=== PATIENT | male | born 1960 | race Caucasian/White ===

== ENCOUNTER → 2020-09-17 10:31 | Outpatient (CLI) | payer OTHER, SELFPAY ==
[2020-09-18 12:34] LABS: Covid-19 Nasal PCR Sendout Lex Not Detected
== END ==
PROVIDERS: PCP Family Medicine; Visit Provider Family Medicine
DX: Z03.818 Encounter for observation for suspected exposure to other biological agents ruled out (principal)
CPT/HCPCS: U0004

== ENCOUNTER 2024-04-04 14:38 | Outpatient (CLI) | payer BC, SELFPAY ==
[2024-04-04 14:58] LABS: Basophils # 0.1 K/mm3 (0-0.2); Basophils % 0.6 % (0.1-2.0); Eosinophils # 0.3 K/mm3 (0.0-0.4); Eosinophils % 2.6 % (0.1-12.0); Hematocrit 39.8 % (42.0-52.0); Hemoglobin 13.1 g/dL (14.1-18.0); Lymphocytes % 15.2 % (10-50); Mean Corpuscular HGB Conc 32.9 g/dL (31.8-35.4); Mean Corpuscular Volume 94.2 fl (80-94); Mean Platelet Volume 8.8 fl (7.4-10.4); Monocytes # 0.9 K/mm3 (0.1-1.0); Monocytes % 7.2 % (1.7-9.3); Neutrophils # 9.6 K/mm3 (1.8-7.8); Neutrophils % 74.3 % (37.0-80.0); Platelet Count 263 K/mm3 (142-424); Red Blood Count 4.22 M/mm3 (4.60-6.20); Red Cell Distribution Width 15.2 % (11.5-17.5); White Blood Count 12.9 K/mm3 (4.8-10.8)
[2024-04-04 15:31] LABS: Chloride 98 mmol/L (98-107)
[2024-04-04 15:32] LABS: Potassium 4.5 mmoL/L (3.5-5.1); Sodium 135 mmol/L (136-145)
[2024-04-04 15:34] LABS: Alanine Aminotransferase 41 U/L (12-78); Alkaline Phosphatase 70 U/L (38-126); Anion Gap 15.5 mEq/L (5-15); Aspartate Amino Transferase 38 U/L (17-59); Bilirubin,Indirect 0.6 mg/dL (0.0-0.9); Bilirubin,Total 0.6 mg/dl (0.2-1.3); Bilirubin,Unconjugated 0.5 mg/dL (0.0-1.1); Blood Urea Nitrogen 37 mg/dl (9-20); Carbon Dioxide 26 mmol/L (22.0-30.0); Cholesterol 114 mg/dl (140-200); Estimated Glomerular Filt Rate 51 ml/min (>60); GFR (African American) 62 ML/MIN (>60); Triglycerides 116 mg/dl (30-150); VLDL Cholesterol 23 mg/dL (0-40)
[2024-04-04 15:35] LABS: Albumin Level 4.5 g/dl (3.5-5.0); Calcium 9.7 mg/dl (8.4-10.2); Chol/HDL Ratio 3.7 (1-3.5); Glucose 96 mg/dl (74-100); HDL Cholesterol 31 mg/dl (40-60); Iron 78 ug/dL (49-181); Magnesium 1.9 mg/dl (1.6-2.3); Total Protein,Serum 7.4 g/dl (6.3-8.2)
[2024-04-04 15:49] LABS: Total Iron Binding Capacity 324 ug/dL (261-462)
[2024-04-04 15:56] LABS: Direct LDL Cholesterol 68.86 mg/dL (100-129)
[2024-04-04 16:15] LABS: Ferritin 201 ng/ml (17.9-464)
[2024-04-04 20:39] LABS: Free T4 (Free Thyroxine) 1.23 ng/dl (0.78-2.19)
== END 2024-04-04 23:59 | disposition home or self-care (01) ==
LOC: LAB 14:40
PROVIDERS: PCP Family Medicine; Visit Provider Internal Medicine
DX: R06.00 Dyspnea, unspecified (principal); R60.0 Localized edema; R94.31 Abnormal electrocardiogram [ECG] [EKG]
CPT/HCPCS: 36415; 80048; 80061; 80076; 82728; 83540; 83550; 83735; 84439; 84443; 85025

== ENCOUNTER 2024-04-09 09:15 | Outpatient (CLI) | payer BC, SELFPAY ==
--- NOTE | 2024-04-09 09:15 | CA_ITS ---
APPROVED REPORT EXAM: Comprehensive 2D, Doppler, and color-flow Echocardiogram Paper Products Machine Operator: Fauzia Roberts RVT Ht: 5 ft 8 in Wt: 300lbs BSA: 2.43 BP: 124/70 mmHg Indications: EDEMA,SOA,CHF,OBESITY TDS-PT BODY HABITUS LIMITED WINDOWS 2D Dimensions IVSd 0.88 cm M: 0.6-1.2 LVEF (Visual) 45.80 % PWd 1.01 cm M: 0.6 - 1.2 LA Volume 64.10 mL LVDd 6.42 cm M: 4.2 - 5.9 LA Volume Index 26.38 mL/m2 (M/F) 16-34 LVDs 4.92 cm M: 2.5 - 4.0 M-Mode Dimensions LA Diam 5.25 cm (1.9-4.0) TAPSE 2.64 (<1.7) LV Diastology E Decel Time 220 (160-240 msec) E/A Ratio 0.8 Aortic Valve KASSANDRA Index 3.15 cm2/m2 AoV Peak Naif. 129.0 (50-130 cm/s) AO Peak GR. 6.60 mmHg AO Mean GR. 3.30 (<5 mmHg) AO VTI 24.6 (18-25 cm) KASSANDRA (VTI) 7.84 (2.5-4.5 cm2) Mitral Valve MV E Max Naif. 73.0 (40-130 cm/s) MV A Velocity 95.0 (40-130 cm/s) E/A Ratio 0.77 MV PHT 64.0 ms Pulmonary Valve PV Peak Velocity 98.0 (50-150 cm/s) Tricuspid Valve TR P. Velocity 192.00 cm/s RAP Estimate 10.00 mmHg RVSP 24.70 mmHg Left Ventricle The left ventricle is normal size. Left ventricular systolic function is mild to moderately decreased. There is increased LV wall thickness. There is severe hypokinesis of the septal, anterior, and anteroseptal LV calle. Grade 1 diastolic dysfunction is present. LVEF is 40%. Right Ventricle The right ventricle is normal size. The right ventricular systolic function is normal. Atria The left atrium size is normal. The right atrium size is normal. There is no Doppler evidence of interatrial shunt. Aortic Valve The aortic valve is mildly thickened. There is no aortic valvular stenosis. Mild aortic regurgitation. Mitral Valve The mitral valve is normal in structure. No evidence of mitral valve stenosis. Mild mitral regurgitation. Tricuspid Valve The tricuspid valve leaflets are thin and pliable. Trace tricuspid regurgitation. There is insufficient TR jet to estimate RVSP. Pulmonic Valve The pulmonary valve is normal in structure. Trace pulmonic regurgitation. Great Vessels The aortic root is normal in size. The ascending aorta is not well visualized. IVC is normal in size and collapses >50% with inspiration. Pericardium There is no pericardial effusion. Other Information Study Quality: Fair Conclusion Mild to moderate reduction in LV systolic function (LVEF 40%). Severe hypokinesis of the septal, anterior, and anteroseptal LV calle. Mild AI, mild MR. Electronically signed by : Elizabeth Gamez MD 04/13/2024 15:24:02
== END 2024-04-09 23:59 | disposition home or self-care (01) ==
LOC: RT 09:15
PROVIDERS: PCP Family Medicine; Visit Provider Internal Medicine
DX: R94.31 Abnormal electrocardiogram [ECG] [EKG] (principal); R60.0 Localized edema; R06.00 Dyspnea, unspecified
CPT/HCPCS: 93306

== ENCOUNTER 2024-04-18 13:53 | Outpatient (CLI) | payer BC, SELFPAY ==
[2024-04-18 15:06] LABS: Anion Gap 16.7 mEq/L (5-15); Calcium 9.8 mg/dl (8.4-10.2); Carbon Dioxide 25 mmol/L (22.0-30.0); Chloride 94 mmol/L (98-107); Estimated Glomerular Filt Rate 25 ml/min (>60); GFR (African American) 30 ML/MIN (>60); Glucose 84 mg/dl (74-100); Magnesium 2.4 mg/dl (1.6-2.3); Potassium 4.7 mmoL/L (3.5-5.1); Sodium 131 mmol/L (136-145)
[2024-04-18 15:14] LABS: Blood Urea Nitrogen 88 mg/dl (9-20)
[2024-04-18 15:33] LABS: Hemoglobin A1C 5.9 % (4.0-6.0)
== END 2024-04-18 23:59 | disposition home or self-care (01) ==
PROVIDERS: PCP Family Medicine; Visit Provider Internal Medicine
DX: I50.9 Heart failure, unspecified (principal); R94.31 Abnormal electrocardiogram [ECG] [EKG]; R60.0 Localized edema; R06.00 Dyspnea, unspecified; R06.01 Orthopnea; E11.9 Type 2 diabetes mellitus without complications; I50.20 Unspecified systolic (congestive) heart failure; Z79.899 Other long term (current) drug therapy; Z79.85 Long-term (current) use of injectable non-insulin antidiabetic drugs; Z79.84 Long term (current) use of oral hypoglycemic drugs
CPT/HCPCS: 36415; 80048; 83036; 83735

== ENCOUNTER 2024-04-23 09:27 | Outpatient (CLI) | payer BC, SELFPAY ==
[2024-04-23 10:58] LABS: Anion Gap 17.2 mEq/L (5-15); Blood Urea Nitrogen 62 mg/dl (9-20); Calcium 9.6 mg/dl (8.4-10.2); Carbon Dioxide 24 mmol/L (22.0-30.0); Chloride 98 mmol/L (98-107); Estimated Glomerular Filt Rate 41 ml/min (>60); GFR (African American) 50 ML/MIN (>60); Glucose 114 mg/dl (74-100); Potassium 5.2 mmoL/L (3.5-5.1); Sodium 134 mmol/L (136-145)
== END 2024-04-23 23:59 | disposition home or self-care (01) ==
LOC: LAB 09:29
PROVIDERS: PCP Family Medicine; Visit Provider Internal Medicine
DX: I50.20 Unspecified systolic (congestive) heart failure (principal); R06.00 Dyspnea, unspecified; R06.01 Orthopnea; R60.0 Localized edema; R94.31 Abnormal electrocardiogram [ECG] [EKG]
CPT/HCPCS: 36415; 80048

== ENCOUNTER 2024-05-03 11:10 | Outpatient (CLI) | payer BC, SELFPAY ==
[2024-05-03 12:27] LABS: Anion Gap 15.4 mEq/L (5-15); Blood Urea Nitrogen 33 mg/dl (9-20); Calcium 9.8 mg/dl (8.4-10.2); Carbon Dioxide 25 mmol/L (22.0-30.0); Chloride 100 mmol/L (98-107); Estimated Glomerular Filt Rate 47 ml/min (>60); GFR (African American) 57 ML/MIN (>60); Glucose 90 mg/dl (74-100); Potassium 4.4 mmoL/L (3.5-5.1); Sodium 136 mmol/L (136-145)
== END 2024-05-03 23:59 | disposition home or self-care (01) ==
LOC: LAB 11:11
PROVIDERS: PCP Family Medicine; Visit Provider Nurse Practitioner
DX: I50.20 Unspecified systolic (congestive) heart failure (principal); E11.9 Type 2 diabetes mellitus without complications; R94.31 Abnormal electrocardiogram [ECG] [EKG]; Z79.84 Long term (current) use of oral hypoglycemic drugs; Z79.85 Long-term (current) use of injectable non-insulin antidiabetic drugs
CPT/HCPCS: 36415; 80048

== ENCOUNTER 2024-06-05 15:12 | Outpatient (CLI) | payer BC, SELFPAY ==
[2024-06-05 15:49] LABS: Basophils # 0.1 K/mm3 (0-0.2); Basophils % 0.9 % (0.1-2.0); Eosinophils # 0.3 K/mm3 (0.0-0.4); Eosinophils % 2.4 % (0.1-12.0); Hematocrit 42.1 % (42.0-52.0); Hemoglobin 13.7 g/dL (14.1-18.0); Lymphocytes # 2.1 K/mm3 (0.7-4.5); Lymphocytes % 18.9 % (10-50); Mean Corpuscular HGB Conc 32.6 g/dL (31.8-35.4); Mean Corpuscular Hemoglobin 31.2 pg (27.0-31.2); Mean Corpuscular Volume 95.9 fl (80-94); Mean Platelet Volume 8.6 fl (7.4-10.4); Monocytes % 9.3 % (1.7-9.3); Neutrophils # 7.7 K/mm3 (1.8-7.8); Neutrophils % 68.5 % (37.0-80.0); Platelet Count 259 K/mm3 (142-424); Red Blood Count 4.39 M/mm3 (4.60-6.20); Red Cell Distribution Width 15.4 % (11.5-17.5); White Blood Count 11.2 K/mm3 (4.8-10.8)
[2024-06-05 17:32] LABS: Anion Gap 14.7 mEq/L (5-15); Blood Urea Nitrogen 33 mg/dl (9-20); Calcium 9.7 mg/dl (8.4-10.2); Carbon Dioxide 23 mmol/L (22.0-30.0); Chloride 101 mmol/L (98-107); Estimated Glomerular Filt Rate 51 ml/min (>60); GFR (African American) 62 ML/MIN (>60); Glucose 85 mg/dl (74-100); Magnesium 2.2 mg/dl (1.6-2.3); Potassium 4.7 mmoL/L (3.5-5.1); Sodium 134 mmol/L (136-145)
== END 2024-06-05 23:59 | disposition home or self-care (01) ==
LOC: LAB 15:13
PROVIDERS: PCP Family Medicine; Visit Provider Internal Medicine
DX: I50.20 Unspecified systolic (congestive) heart failure (principal); E11.9 Type 2 diabetes mellitus without complications; R06.01 Orthopnea; I50.9 Heart failure, unspecified; R94.31 Abnormal electrocardiogram [ECG] [EKG]; R60.0 Localized edema; R06.00 Dyspnea, unspecified
CPT/HCPCS: 36415; 80048; 83735; 85025

== ENCOUNTER 2024-06-14 07:57 | Outpatient (CLI) | payer BC, SELFPAY ==
--- NOTE | 2024-06-14 08:02 | CA_ITS ---
APPROVED REPORT EXAM: Limited 2D Echocardiogram Well Surveying Engineer: Laura Barrow RDCS Ht: 5 ft 8 in Wt: 286lbs BSA: 2.38 BP: 108/59 mmHg Indications: EF CHECK HRrEF M-Mode Dimensions RVDd 1.89 cm (0.9-2.6) LA Diam 3.87 cm (1.9-4.0) LVDd 6.39 cm (3.5-5.7) LVDs 4.98 cm (3.5-5.7) IVSd 1.04 cm (0.6-1.1) PWd 1.21 cm (0.6-1.1) EF (Teich) 43.60% FS 22.10% EDV (Teich) 207.80 mL ESV (Teich) 117.10 mL Other Information Study Quality: Technically Difficult Conclusion This is a limited TTE to evaluate for LVEF. Limited windows were obtained. Technically difficult study. The left ventricle is normal in size. There is increased LV wall thickness. There is global hypokinesis present. There is severe hypokinesis of the septal, anterior, and anteroseptal LV calle. LVEF is approximately 40%. Note, that the LVEF may be inaccurate in the setting of technically difficult study, but grossly appears unchanged from prior study. Future evaluations of LVEF are suggested with administration of ultrasound enhancing agent to better delineate the LV endocardial borders. Electronically signed by : Elizabeth Gamez MD 06/14/2024 11:56:08
== END 2024-06-14 23:59 | disposition home or self-care (01) ==
LOC: RT 07:58
PROVIDERS: PCP Family Medicine; Visit Provider Internal Medicine
DX: R94.31 Abnormal electrocardiogram [ECG] [EKG] (principal); I50.20 Unspecified systolic (congestive) heart failure; R06.01 Orthopnea; R60.0 Localized edema; R06.00 Dyspnea, unspecified; Z79.899 Other long term (current) drug therapy
CPT/HCPCS: 93308

== ENCOUNTER 2024-07-12 09:55 | Outpatient (CLI) | payer BC, SELFPAY ==
[2024-07-12 10:12] LABS: Chloride 97 mmol/L (98-107); Sodium 133 mmol/L (136-145)
[2024-07-12 10:15] LABS: Blood Urea Nitrogen 28 mg/dl (9-20); Estimated Glomerular Filt Rate 56 ml/min (>60); GFR (African American) 68 ML/MIN (>60)
[2024-07-12 10:16] LABS: Calcium 9.3 mg/dl (8.4-10.2); Carbon Dioxide 26 mmol/L (22.0-30.0); Glucose 94 mg/dl (74-100)
--- NOTE | 2024-07-12 10:27 | MR_ITS ---
APPROVED REPORT Clinical Product Manager: CLINICAL INDICATION HFrEF evaluation (LVEF 40% on TTE) TECHNIQUE Image Acquisition: Cardiac magnetic resonance (CMR) was performed on Siemens Espree MRI 1.5T scanner. Software platform sequences were performed using the Siemens [employer] MR B19 platform. A set of three-plane, low-resolution, large [id number] localizers were initially acquired. Then axial, coronal, sagittal TrueFISP, as well as axial HASTE images, were obtained. These were followed by gated TrueFISP breathold cinematic sequences obtained in the short axis with 8 mm slices and 2 mm gaps, 2-chamber (vertical long axis), 3-chamber, 4-chamber (horizontal long axis). 2D-velocity phase mapping was performed. Functional parameters were calculated by offline analysis on an independent workstation ([employer], [employer]). Contrast: Gadolinium contrast was not administered in the study. FINDINGS MORPHOLOGY AND FUNCTION Left ventricle: The left ventricle is normal in size. The indexed left ventricular end-diastolic volume (LVEDVi) is 76 ml/m2 (reference range 57-105 ml/m2 in males, 56-96 ml/m2 in females). There is mild reduction in rmal left ventricular systolic function. There is normal left ventricular wall thickness. There is mild global hypokinesis present. The septum appears asynchronous. There is moderate hypokinesis of the septal and inferior septal LV calle. The LVEF is calculated at 42.1% (reference range 57-77%). Right ventricle: The right ventricle is normal in size. The indexed right ventricular end-diastolic volume (RVEDVi) is 45 ml/m2 (reference range 61-121 ml/m2 in males, 48-112 ml/m2 in females). There is mild reduction in right ventricular systolic function. RVEF is calculated at 45.6% (reference range 52-72% in males, 51-71% in females). Atria: The left atrium is normal in size. The maximum indexed left atrial volume is 27 ml/m2 (reference range 26-52 ml/m2 in males, 27-53 ml/m2 in females). The right atrium is normal in size. The maximum indexed right atrial volume is 18 ml/m2 (reference range 18-90 ml/m2). The interatrial septum appears aneurysmal. Aorta: The diameter of the aortic annulus is normal, measuring 28 mm (coronal view reference range 21-30 mm in males, 19-27 mm in females). The diameter of the aortic sinus is normal, measuring 39 mm (coronal view reference range 25-42 mm in males, 24-36 mm in females). The diameter of the sinotubular junction is normal, measuring 30 mm (coronal view reference range 18-32 mm in males, 18-28 mm in females). The diameters of the ascending and descending thoracic aorta are normal. Main pulmonary artery: The main pulmonary artery diameter is normal. Pericardium: The pericardial thickness is normal. The pericardial thickness measures 2.8 mm (normal < 4.0 mm). There is no pericardial effusion. VALVES The valvular morphologies in the visualized sequences appear normal. There is no significant valvular stenosis or regurgitation of the mitral, aortic, tricuspid, or pulmonic valve noted visually. Systolic anterior motion of the mitral valve is not visualized. Ratio of pulmonary to systemic flow, Qp:Qs ratio could not be calculated due to technical error during image acquisition. TISSUE CHARACTERIZATION Resting Perfusion: Cannot be analyzed due to no gadolinium administration in the study. Myocardial Fibrosis and/or edema: Cannot be analyzed due to no gadolinium administration in the study. OTHER A well-circumscribed hyperintense hepatic mass is present, measuring approximately 2.0 cm in diameter. This most likely represents cyst vs. benign hamartoma, but alternative etiologies cannot be entirely ruled out. Correlation with new or recent RUQ ultrasound is recommended. IMPRESSION Technically difficult study due to difficult breath-holding at the time of image acquisition. Normal LV size with mild reduction in LV systolic function. LVEDVi= 76 ml/m2 and LVEF= 42.1%. Asynchronous septum. Moderate hypokinesis of the septal and anteroseptal LV calle. Normal RV size with mild reduction in RV systolic function. RVEDVi= 45 ml/m2 and RVEF= 45.6%. No atrial enlargement. The interatrial septum appears aneurysmal. No data on perfusion analysis or LGE in the setting of no contrast administration in the study. Incidental finding of a well-circumscribed hyperintense hepatic mass is present, measuring approximately 2.0 cm in diameter. This most likely represents cyst vs.benign hamartoma, but alternative etiologies cannot be entirely ruled out. Correlation with new or recent RUQ ultrasound is recommended. Overall, this CMR demonstrates mild reduction in biventricular systolic function. No evidence of marked hypertrophy to suggest infiltrative cardiomyopathy. Ischemic cardiomyopathy cannot be entirely ruled out in the setting of no contrast images. COMPARISON None CRITICAL RESULT None COMMUNICATION The above findings were communicated with the patient at the time of his routine outpatient clinic visit. The findings of this cardiac MR were reviewed, reported, and signed by Jason Gamez MD (Practice Physician). Conclusion Electronically signed by : Elizabeth Gamez MD 07/16/2024 00:59:16
== END 2024-07-12 23:59 | disposition home or self-care (01) ==
LOC: RAD 09:55
PROVIDERS: PCP Family Medicine; Visit Provider Internal Medicine
DX: I50.9 Heart failure, unspecified (principal)
CPT/HCPCS: 36415; 75557; 80048

== ENCOUNTER 2024-07-16 12:33 | Outpatient (CLI) | payer BC, SELFPAY ==
[2024-07-16 13:14] LABS: Blood Urea Nitrogen 20 mg/dl (9-20); Estimated Glomerular Filt Rate 61 ml/min (>60); GFR (African American) 74 ML/MIN (>60)
== END 2024-07-16 23:59 | disposition home or self-care (01) ==
LOC: LAB 12:34
PROVIDERS: PCP Family Medicine; Visit Provider Internal Medicine
DX: I50.20 Unspecified systolic (congestive) heart failure (principal); I50.9 Heart failure, unspecified
CPT/HCPCS: 36415; 82565; 84520

== ENCOUNTER 2025-01-14 13:42 | Outpatient (CLI) | payer BC, SELFPAY ==
[2025-01-14 14:18] LABS: Basophils # 0.1 K/mm3 (0-0.2); Basophils % 0.8 % (0.1-2.0); Eosinophils # 0.2 K/mm3 (0.0-0.4); Eosinophils % 2.4 % (0.1-12.0); Hematocrit 40.1 % (42.0-52.0); Hemoglobin 12.8 g/dL (14.1-18.0); Mean Corpuscular HGB Conc 31.9 g/dL (31.8-35.4); Mean Corpuscular Hemoglobin 30.3 pg (27.0-31.2); Mean Corpuscular Volume 94.8 fl (80-94); Mean Platelet Volume 10.5 fl (7.4-10.4); Monocytes % 9.7 % (1.7-9.3); Neutrophils # 6.7 K/mm3 (1.8-7.8); Platelet Count 280 K/mm3 (142-424); Red Blood Count 4.23 M/mm3 (4.60-6.20); Red Cell Distribution Width 15.3 % (11.5-17.5); White Blood Count 10.2 K/mm3 (4.8-10.8)
[2025-01-14 15:12] LABS: Alanine Aminotransferase 30 U/L (12-78); Albumin Level 4.4 g/dl (3.5-5.0); Alkaline Phosphatase 79 U/L (38-126); Anion Gap 16.7 mEq/L (5-15); Aspartate Amino Transferase 30 U/L (17-59); Bilirubin,Direct 0.3 mg/dl (0.0-0.4); Bilirubin,Indirect 0.2 mg/dL (0.0-0.9); Bilirubin,Total 0.5 mg/dl (0.2-1.3); Bilirubin,Unconjugated 0.2 mg/dL (0.0-1.1); Blood Urea Nitrogen 21 mg/dl (9-20); Calcium 9.6 mg/dl (8.4-10.2); Carbon Dioxide 23 mmol/L (22.0-30.0); Chloride 101 mmol/L (98-107); Chol/HDL Ratio 3.8 (1-3.5); Cholesterol 129 mg/dl (140-200); Estimated Glomerular Filt Rate 56 ml/min (>60); GFR (African American) 67 ML/MIN (>60); Glucose 91 mg/dl (74-100); HDL Cholesterol 34 mg/dl (40-60); Magnesium 2.3 mg/dl (1.6-2.3); Potassium 4.7 mmoL/L (3.5-5.1); Sodium 136 mmol/L (136-145); Total Protein,Serum 7.4 g/dl (6.3-8.2); Triglycerides 177 mg/dl (30-150); VLDL Cholesterol 35 mg/dL (0-40)
[2025-01-14 15:30] LABS: Free T4 (Free Thyroxine) 0.97 ng/dl (0.78-2.19)
== END 2025-01-14 23:59 | disposition home or self-care (01) ==
LOC: LAB 13:43
PROVIDERS: PCP Family Medicine; Visit Provider Internal Medicine
DX: I50.20 Unspecified systolic (congestive) heart failure (principal); E11.9 Type 2 diabetes mellitus without complications; R06.01 Orthopnea; R94.31 Abnormal electrocardiogram [ECG] [EKG]; R60.0 Localized edema; R06.00 Dyspnea, unspecified; Z79.899 Other long term (current) drug therapy
CPT/HCPCS: 36415; 80048; 80061; 80076; 83735; 84439; 84443; 85025

== ENCOUNTER 2025-01-25 14:25 | Outpatient (CLI) | payer BC, SELFPAY ==
--- OUTSIDE RECORDS SUMMARY | 2025-01-25 14:28 | XMS_ITS | Data Portability ---
Author Organization [facility] & NALINI Swartz ADMIN Address [address] [place] [id number] Care Team Providers Care Software Tester Name Role Phone GABINO SIERRA Primary Care Provider [phone] Assessment No assessment recorded. Plan of Treatment Reminders Order Date Submit Date Provider Last Modified By Organization Details Last Modified Time Details Appointments None record ed. Lab None record ed. Referral None record ed. Procedures None record ed. Surgeries None record ed. Imaging None record ed. Medication Orders None record ed. Patient TargetsNo targets recorded. Patient Instructions Encounter Date Encounter Id Patient Instructions Last Modified By Organization Details Last Modified Time 06/07/2024 [id number] Wound care instructions were reviewed. Advised patient that may require several treatment for adequate resolution. [email or web address] Not available 06/07/2024 17:06:38 Reason for Referral None Reported. Procedures Surgical History Date Name Laterality Status Provider Name and Address Organization Details Recorded Time 06/07/20 24 Cryosurgery Warts/Skin Tags completed Sharon Tamayo MD [address] [facility], [place], [address], [facility] & [place] 06/07/2024 17:05:24 10/10/19 22 Other completed Dolores David [facility] & [place] 05/16/2024 14:48:39 10/10/18 98 ENT Surgery completed Dolores PARNELL [facility] & [place] 05/16/2024 14:53:55 Imaging Results None recorded. Procedure Notes None recorded. Medical Equipment None Reported. Allergies No known drug allergies Medications Name Sig Start Date Stop Date Status Note LastModified by Organization Details LastModified Time metformin 500 mg tablet TAKE 1 TABLET BY MOUTH TWICE DAILY FOR DIABETES active Not Available Not Available No t Available doxycycline hyclate 100 mg capsule TAKE 1 CAPSULE BY MOUTH TWICE DAILY 05/13 completed Not Available Not Available Not Available bumetanide 2 mg tablet TAKE 1 TABLET BY MOUTH IN THE MORNING AND 2 TABLETS BY MOUTH IN THE AFTERNOON active Not Available Not Available No t Available metoprolol succinate ER 50 mg tablet,exte nded release 24 hr TAKE 1 TABLET BY MOUTH DAILY active Not Available Not Available No t Available atenolol 100 mg tablet TAKE 1 TABLET BY MOUTH EVERY DAY 05/13 completed Not Available Not Available Not Available lisinopril 20 mg tablet TAKE 1 TABLET BY MOUTH DAILY active Not Available Not Available No t Available metolazone 5 mg tablet TAKE 1 TABLET BY MOUTH DAILY active Not Available Not Available No t Available spironolact one 25 mg tablet TAKE 2 TABLETS BY MOUTH DAILY active Not Available Not Available No t Available potassium chloride ER 20 mEq tablet,exte nded release(par t/cryst) TAKE 1 TABLET BY MOUTH DAILY 05/13 completed Not Available Not Available Not Available cephalexin 500 mg capsule TAKE 1 CAPSULE BY MOUTH TWICE DAILY 05/13 completed Not Available Not Available Not Available simvastatin 20 mg tablet TAKE 1 TABLET BY MOUTH EVERY DAY active Not Available Not Available No t Available clotrimazol e-betametha sone 1 %-0.05 % topical cream APPLY TOPICALLY TO RASH 1 TO 2 TIMES DAILY NEEDED 05/13 completed Not Available Not Available Not Available bumetanide 1 mg tablet TAKE 1 TABLET BY MOUTH EVERY MORNING FOR LEG SWELLING 05/13 completed Not Available Not Available Not Available metoprolol succinate ER 25 mg tablet,exte nded release 24 hr TAKE 1 TABLET BY MOUTH DAILY 05/13 completed Not Available Not Available Not Available amoxicillin 875 mg-potassiu m clavulanate 125 mg tablet TAKE 1 TABLET BY MOUTH TWICE DAILY WITH FOOD FOR 2 WEEKS FOR INFECTION 05/13 completed Not Available Not Available Not Available sildenafil (pulmonary hypertensio n) 20 mg tablet TAKE 3 TO 5 TABLETS BY MOUTH EVERY DAY NEEDED 05/13 completed Not Available Not Available Not Available Jardiance 10 mg tablet TAKE 1 TABLET BY MOUTH DAILY active Not Available Not Available No t Available Entresto 24 mg-26 mg tablet TAKE 1 TABLET BY MOUTH TWICE DAILY active Not Available Not Available No t Available Ozempic 1 mg/dose (4 mg/3 mL) subcutaneou s pen injector ADMINISTE R 1 MG UNDER THE SKIN WEEKLY FOR 4 WEEKS active Not Available Not Available No t Available aspirin 81 mg capsule Take 1 capsule every day by oral route. active Not Available Not Available No t Available Ozempic 0.25 mg or 0.5 mg (2 mg/3 mL) subcutaneou s pen injector ADMINISTE R 0.5 MG UNDER THE SKIN WEEKLY active Not Available Not Available No t Available Vitals Date Recorded Body weight Body mass index (BMI) Body height Body temperature Provider Name and Address Organization Details Last Updated DateTime 05/16/2024 265140.01 g 43.6 kg/m2 172.72 cm 98.1 [degF] Dolores David [facility] & [place] 05/16/2024 14:50:32 Social History Question Answer Notes LastModified by Organizat ion Details LastModified Time Tobacco Smoking Status Never Smoker Dolores David [facility], [facility] & [place] 05/16/2024 14:48:34 Do You Have An Advance Directive? Yes Information not available 05/16/2024 What Is Your Level Of Alcohol Consumption? Occasional Information not available 05/16/2024 Are You Blind Or Do You Have Difficulty Seeing? No Information not available 05/16/2024 What Was The Date Of Your Most Recent Tobacco Screening? 05/13/2024 Information not available 05/16/2024 Are You Passively Exposed To Smoke? No Information no t available 05/16/2024 Do You Feel Stressed (tense, Restless, Nervous, Or Anxious, Or Unable To Sleep At Night)? [id number] Information not available 05/16/2024 Do You Use Any Illicit Or Recreational Drugs? No Information not available 05/16/2024 Sex: Unknown Functional Status Question Answer Note LastModified by Organization D etails LastModified Time What is your exercise level? None Information not available 05/16/2024 Mental Status None recorded. Family History Nothing Reported. Medical History Condition Response Diabetes Y Congestive Heart Failure (CHF) Y Heart Problems Y Hyperlipidemia Y Hypertension Y High Cholesterol Y Past Encounters Encounter ID Performer Location Encounter Start Date Encounter Closed Date Diagnosis/Indication Diagnosis SNOMED-CT Code Diagnosis ICD10 Code Diagnosis Note [id number] Sharon Tamayo MD [facility] [id number], [place] [address] 05/16/2024 14:45:04 05/16/2024 15:36:05 Seborrheic keratosis 413568852 L82.1 Explained to the patient this growth is benign in nature. Should he desire it to be removed, the repair would require a skin flap given the size of the defect. I am happy to refer him to a surgeon who specialize s in this type of repair. I am also willing to use cryotherap y to help try and reduce it in size. Explained this would most likely take several attempts. He would like to go this route. Will see him back 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 [id number] Sharon Tamayo MD [facility] [address] [place] [address] 06/07/2024 16:03:01 06/07/2024 16:30:26 Actinic keratosis 099160825 L57.0 Pain in face 52689150 R5 1.9 Health Concerns Section Related Observation LastModified by Organization Detai ls LastModified Time None Recorded Concern Status LastModified by Organization Details LastModified Time None Recorded Advance Directives Directive Y: Payers Encounter Date Sequence Insurance Name Policy Number Policy Olivas Covered Member ID Olivas Member ID Guarantor Name 05/16/2024 1 BS-[place]: BRENDA [employer] [place] [employer] ([place] [id number] Pablo Lewis [id number] Pablo Lewis 06/07/2024 1 BS-[place]: JOSE [employer] [place] [id number] Pablo Lewis [id number] Pablo Lewis Notes Date Note Type Note Provider Name and Address Organization Details Recorded Time 05/16/2024 text/html 05/16/24- Patient is here for skin lesion on right buddhism. Patient states he had surgery to remove the growth in the same location at [facility] with Dr Gifford 1996. States it was not a malignant lesion. It has grown back since. He states it is more raised up than it has been. He has no draining from it. Dr Sierra is the referring provider. Sharon Tamayo MD [address], [place], [address], [facility] [place] & [place] 05/18/2024 16:28:47
--- NOTE | 2025-01-25 14:30 | CA_ITS ---
APPROVED REPORT EXAM: Comprehensive 2D, Doppler, and color-flow Echocardiogram Pastry Cook Apprentice: SHAHID Williamson, RVS Ht: 5 ft 8 in Wt: 280lbs BSA: 2.36 BP: 112/52 mmHg Rhythm: ABN EKG Indications: HFrEF, CHF, ABN EKG, SOB, DM, Edema Echo Enhancing Agent Comments: Non-Definity contrast exam due to: Multiple attempts to start an IV were utilized without success. Poor acoustics throughout with limited windows. 2D Dimensions IVSd 1.02 cm LVEF (Visual) 48.60 % PWd 1.23 cm LA Volume 62.70 mL LVDd 5.67 cm LA Volume Index 25.90 mL/m2 (M/F) 16-34 LVDs 4.15 cm Left Atrium 4.29 cm M-Mode Dimensions LA Diam 5.03 cm (1.9-4.0) EPSs 1.37 cm TAPSE 1.65 (<1.7) LV Diastology E Decel Time 270 (160-240 msec) E/A Ratio 0.70 MED A' 15.40 cm/s LAT A' 14.00 cm/s Aortic Valve KASSANDRA Index 0.79 cm2/m2 AoV Peak Naif. 178.0 (50-130 cm/s) AO Peak GR. 12.70 mmHg AO Mean GR. 6.30 (<5 mmHg) AO VTI 34.1 (18-25 cm) KASSANDRA (VTI) 1.90 (2.5-4.5 cm2) Mitral Valve MV A Velocity 99.0 (40-130 cm/s) E/A Ratio 0.70 Left Ventricle The left ventricle is normal size. The left ventricular systolic function is low normal.. There is increased LV wall thickness. There is moderate hypokinesis of the septal and anteroseptal LV calle. Transmitral Doppler flow pattern suggests impaired LV relaxation. LVEF is 50%. Right Ventricle The right ventricle is normal size. The right ventricular systolic function is normal. Atria The left atrium size is normal. The right atrium size is normal. There is no Doppler evidence of interatrial shunt. Aortic Valve The aortic valve is mildly thickened. Trace aortic regurgitation. There is no aortic valvular stenosis. Mitral Valve The mitral valve is normal in structure. No evidence of mitral valve stenosis. Trace mitral regurgitation. Tricuspid Valve Tricuspid valve is grossly normal in structure and function. Trace tricuspid regurgitation. There is insufficient TR jet to estimate RVSP. Pulmonic Valve The pulmonary valve is normal in structure. Trace pulmonic regurgitation. Great Vessels The aortic root is normal in size. IVC is normal in size and collapses >50% with inspiration. Pericardium There is no pericardial effusion. Other Information Study Quality: Technically Difficult Conclusion Technically difficult study due to poor acoustic windows. Low normal LV systolic function (LVEF 50%). Moderate hypokinesis of the septal and anteroseptal LV calle. No significant valvular stenosis or regurgitation. Compared to prior study from 06/14/2024, the LVEF is improved and is now normal. In the setting of technically difficult study, future TTE evaluations are suggested with administration of ultrasound enhancing agent to better delineate the LV endocardial borders. Electronically signed by : Elizabeth Gamez MD 01/28/2025 23:00:53
== END 2025-01-25 23:59 | disposition home or self-care (01) ==
LOC: RT 14:26
PROVIDERS: PCP Family Medicine; Visit Provider Internal Medicine
DX: I50.20 Unspecified systolic (congestive) heart failure (principal)
CPT/HCPCS: 93306

== ENCOUNTER 2025-08-06 14:32 | Outpatient (CLI) | payer BC, SELFPAY ==
--- OUTSIDE RECORDS SUMMARY | 2025-08-06 14:51 | XMS_ITS | Data Portability ---
Author Organization [facility] Address [address] [place] [address] Assessment Encounter Date Assessment Date Assessment LastModified by Organization Details LastModified Time 07/11/2017 07/11/2017 Mr. Lewis required suture repair of a left elbow laceration suffered at [facility] this morning. A urine drug screen is negative. He cannot recall his last tetanus vaccine and thinks it was likely many years ago so immunization is updated. He tolerated the procedure without complication. He returns to work with restrictions to keep the wound clean, dry and covered. He also should not use the left arm for repetitive movements. He will follow up in the [facility] clinic for any concerns and in 1 week for wound check and 2 weeks for suture removal. fabien Not available 07/11/2017 22:02:10 Plan of Treatment Reminders Order Date Submit Date Provider Last Modified By Organization Details Last Modified Time Details Appointments None recorde d. Lab drug screen, urine 017 07/11/20 17 fabien [facility], [address] [place], [address], 7 22:03:18 Referral None recorde d. Procedures None recorde d. Surgeries None recorde d. Imaging None recorde d. Medication Orders None recorde d. Patient TargetsNo targets recorded. Patient InstructionsNo instructions recorded. Reason for Referral None Reported. Problems Name Problem SNOMED Code Status Onset Date Resolution Date Notes Provider Name and Address Organization Details Recorded Time Sprain of shoulder and upper arm Active Not Available [facility] 3 03:01:18 Problem Notes None recorded. Procedures Surgical History Date Name Laterality Status Provider Name and Address Organization Details Recorded Time 7 Laceration Repair completed Daphney Muñoz MD [address] [facility], [address], [place], [address], [facility] 07/11/2017 21:51:09 2 Cardiac Surgery completed Anahy Lewis [facility] 03/30/2012 11:28:12 Imaging Results None recorded. Procedure Notes None recorded. Medical Equipment None Reported. Allergies No known drug allergies Medications Name Sig Start Date Stop Date Status Note LastModified by Organization Details LastModified Time losartan 50 mg tablet active Not Available Not Available No t Available cyclobenzapr ine 10 mg tablet Take 1 tablet 3 times a day by oral route as needed. active Not Available Not Available No t Available atorvastatin 80 mg tablet active Not Available Not Available Not Available carvedilol 25 mg tablet active Not Available Not Available Not Available carvedilol 6.25 mg tablet 2011 active Not Available Not Available Not Avai lable carvedilol 12.5 mg tablet 2011 active Not Available Not Available Not Avai lable amiodarone 200 mg tablet TAKE 1 TABLET BY MOUTH ONCE DAILY active Not Available Not Available No t Available permethrin 5 % topical cream active Not Available Not Available Not Available clopidogrel 75 mg tablet active Not Available Not Available Not Available Diovan 80 mg tablet active Not Available Not Available Not Available tramadol 50 mg tablet TAKE 1 TABLET BY MOUTH THREE TIMES DAILY NEEDED active Not Available Not Available No t Available spironolacto ne 25 mg tablet active Not Available Not Available Not Available carvedilol 3.125 mg tablet 2011 active Not Available Not Available Not Avai lable aspirin 325 mg tablet,delay ed release active Not Available Not Available N ot Available mupirocin 2 % topical ointment APPLY A SMALL AMOUNT TO THE AFFECTED AREA BY TOPICAL ROUTE 3 TIMES PER DAY active Not Available Not Available No t Available furosemide 20 mg tablet active Not Available Not Available Not Available methylpredni solone 4 mg tablets in a dose pack TAKE DIRECTED active Not Available Not Available No t Available losartan 100 mg tablet active Not Available Not Available No t Available Xarelto 20 mg tablet active Not Available Not Available No t Available Afluria [id number] (PF) 45 mcg(15 mcg x 3)/0.5 mL intramuscula r syringe inject 0.5 milliliter intramuscul kesha active Not Available Not Available No t Available Paxlovid 300 mg (150 mg x 2)-100 mg tablets in a dose pack TK 2 NIRMATRELVI R TS AND 1 RITONAVIR T TOGETHER PO BID FOR 5 DAYS BID FOR 5 DAYS active Not Available Not Available N ot Available Vitals Date Recorded Body height Body weight Body mass index (BMI) Heart rate Oxygen saturation Oxygen saturation in Arterial blood by Pulse oximetry Body temperature Systolic And Diastolic Provider Name and Address Organization Details Last Updated DateTime 2 181.61 cm 53669.2 5111 g 27.9 kg/m2 66 /min 99 % 99 % 98.2 [degF] 109/69 mm[Hg] [facility] 2 11:28:12 Date Recorded Body height Body weight Body mass index (BMI) Heart rate Oxygen saturation Oxygen saturation in Arterial blood by Pulse oximetry Body temperature Systolic And Diastolic Provider Name and Address Organization Details Last Updated DateTime 2 181.61 cm 06487.4 3585 g 28.2 kg/m2 55 /min 99 % 99 % 97.9 [degF] 116/76 mm[Hg] [facility] 2 13:52:21 Date Recorded Body height Body weight Body mass index (BMI) Heart rate Oxygen saturation Oxygen saturation in Arterial blood by Pulse oximetry Body temperature Systolic And Diastolic Provider Name and Address Organization Details Last Updated DateTime 2 181.61 cm 05394.5 83694 g 28.8 kg/m2 68 /min 97 % 97 % 98.2 [degF] 115/71 mm[Hg] [facility] 2 13:15:20 Date Recorded Body height Body weight Body mass index (BMI) Heart rate Oxygen saturation Oxygen saturation in Arterial blood by Pulse oximetry Body temperature Systolic And Diastolic Provider Name and Address Organization Details Last Updated DateTime 2 181.61 cm 44516.1 38664 g 28.4 kg/m2 59 /min 98 % 98 % 98 [degF] 125/79 mm[Hg] Anahy [facility] 2 13:49:38 Date Recorded Body height Body mass index (BMI) Body weight Heart rate Oxygen saturation Oxygen saturation in Arterial blood by Pulse oximetry Body temperature Systolic And Diastolic Provider Name and Address Organization Details Last Updated DateTime 7 182.88 cm 19.5 kg/m2 41209 g 82 /min 93 % 93 % 98.2 [degF] 119/80 mm[Hg] [facility] 7 09:22:05 Social History Question Answer Notes LastModified by Organizat ion Details LastModified Time Tobacco Smoking Status Never Smoker Not Available [facility] 08/05/2020 03:11:17 Do You Have An Advance Directive? No [id number] Information not available 08/05/2020 Animal Exposure? Yes Informat ion not available 03/30/2012 Auto Related Injury? No Information not available 03/30/2012 Is Blood Transfusion Acceptable In An Emergency? Yes [id number] Information not available 08/05/2020 What Is Your Level Of Caffeine Consumption? Occasional [id number] Information not available 08/05/2020 How Much Tobacco Do You Chew? None [id number] Information not available 08/05/2020 Diabetes Yes Information no t available 03/30/2012 What Type Of Diet Are You Following? REGULAR [id number] Information not available 08/05/2020 Education 12 Information no t available 03/30/2012 Family History Of Heart Disease? Yes Information not available 03/30/2012 Which Of Your Hands Is Dominant? Right [id number] Information not available 08/05/2020 High Blood Pressure Yes Information not available 03/30/2012 High Cholesterol Yes Informat ion not available 03/30/2012 Live Alone Or With Others? With Others Information not available 03/30/2012 Marital Status Informatio n not available 03/30/2012 How Many Children Do You Have? 1 [id number] Information not available 08/05/2020 Do You Use Your Seat Belt Or Car Seat Routinely? Yes [id number] Information not available 08/05/2020 Seat Belts Used Routinely Yes Information not available 03/30/2012 Smoke Alarm In Home Yes Information not available 03/30/2012 General Stress Level Medium [facility] Information not available 03/30/2012 Do You Use Sunscreen Routinely? Yes [id number] Information not available 08/05/2020 Work Related Injury? Yes Information not available 03/30/2012 Sex: Unknown Functional Status Question Answer Note LastModified by Organizat ion Details LastModified Time What is your level of alcohol consumption? None [id number] Information not available 08/05/2020 Are you currently employed? Yes [id number] Information not available 08/05/2020 Are you able to care for yourself independently? Yes [id number] Information not available 08/05/2020 What is your occupation? [employer]ORY Information not available 03/30/2012 What is your exercise level? Occasional [id number] Information not available 08/05/2020 Mental Status None recorded. Family History Relationship Description Onset Age of this Age Resolved Age Notes LastModified by Organization Details LastModified Time Father Myocardial infarction 61 previo usly record ed as Heart Attack (DE) [email or web address] [id number] Not available 07/08/2013 03:00:59 Maternal Grandfather Myocardial infarction 72 previo usly record ed as Heart Attack ([place]) [email or web address] [id number] Not available 07/08/2013 03:00:59 Maternal Grandfather Cerebrovascu lar accident previo usly record ed as Stroke [email or web address] [id number] Not available 07/08/2013 03:00:59 Paternal Grandfather Myocardial infarction 84 previo usly record ed as Heart Attack ([place]) [email or web address] [id number] Not available 07/08/2013 03:00:59 Medical History Condition Response Coronary Artery Disease N Gout N Kidney Stones N Blood Diseases N Hyperthyroidism Y Hypothyroidism N Depression N COPD N Developmental or Behavioral Disorders N Eczema, Hives or other skin conditions N Anxiety Disorder N Muscle, Joint, or Bone Problems N Vision or Eye Problems N Arthritis N Serious Illness or Injuries N Congenital Anomalies N Cancer N Stroke N Bladder or Kidney Problems N Hospital Admission other than N High Cholesterol Y Liver Disease N Fibromyalgia N Kidney Disease N Heart Problems Y Ear or Hearing Problems N ADD or ADHD N Thyroid Problems N Skin Problems N Anemia N Constipation N Diabetes N Bedwetting N Seizures/Epilepsy N Tuberculosis N Diverticulitis N Asthma N Allergies N GERD/Reflux N Heart Disease N Pulmonary Embolism N Hypertension N Osteoporosis N Chicken Pox N Immunizations Vaccine Type Date Status Note Provider Nam e and Address Organization Details Recorded Time Tdap 07/11/2017 completed Not Available [facility] 10/27/2019 02:12:10 Past Encounters Encounter ID Performer Location Encounter Start Date Encounter Closed Date Diagnosis/Indication Diagnosis SNOMED-CT Code Diagnosis ICD10 Code Diagnosis IMO Codes Diagnosis Note [id number] Riley Luz MD [facility] [place] [address] 7 03/30/2012 11:05:53 03/30/2012 12:37:01 [id number] Riley Luz MD [facility] [address] [place] [address] 7 04/14/2012 13:50:14 04/14/2012 16:11:46 [id number] Riley Luz MD [facility] [place] [id number] 7 04/28/2012 13:10:23 04/28/2012 14:15:24 [id number] Riley Luz MD [place] [address] 7 05/26/2012 13:47:01 05/26/2012 16:45:21 [id number] Daphney Muñoz MD [facility] [address] [address] 07/11/2017 09:07:28 07/13/2017 11:26:18 Active or passive immunization 742386318 Z23 Laceration of elbow 2833 64822 S51.012A Worker in work-related accident 45504871 Z57.9 Health Concerns Section Related Observation LastModified by Organization Detai ls LastModified Time None Recorded Concern Status LastModified by Organization Details LastModified Time None Recorded Advance Directives Directive N: Payers Insurance Date Sequence Insurance Name Policy Number Policy Olivas Covered Member ID Olivas Member ID Guarantor Name 07/13/2017 [employer] [id number] blayne Lewis Notes Date Note Type Note Provider Name and Address Organization Details Recorded Time 04/03/2012 text/Dario Fournier 2 Mr. Lewis has a history of onset of discomfort in his left shoulder for two weeks. He is an employee of [employer]. 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 He has also recently had cardiac disease requiring two stents and is now on Plavix and aspirin, so this precludes the use of the NSAIDs. 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 OBJECTIVE: Range of motion of the shoulder is essentially normal. There is no deformity. There is no swelling and not a particular area except the left subdeltoid bursa is somewhat tender. ASSESSMENT: Acute left shoulder strain. PLAN: Return to employment but with limitations avoiding lifting on the left shoulder greater than 10 pounds and avoiding repetitive lifting with left shoulder. He has worked in other capacities at the [employer] and probably would do better in one of those other capacities at least for a time to allow the shoulder time to recover. If the employer has any issues about this, they can get me called and try to accommodate him to help him to be able to keep his work. Riley Luz M.D. JLF/pts Not Available [facility] 05/04/2013 04:34:40 04/18/2012 text/juan luis Dario Lewisald 04/14 Mr. Lewis comes in for followup to a lifting injury to his left shoulder. He continues to have limited motion of the left shoulder and a little bit strength in the left shoulder. He is especially on elevation. There is a 50% reduction in the strength as compared to the right, and a 20% reduction on the downward or flexion motion in his shoulder. The ability to raise the arm over the head is also limited. This has really not improved. 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 His shoulder really is not stronger despite the strengthening exercises. ASSESSMENT: Acute left shoulder strain, unresolved. PLAN: Start physical therapy with gradually increasing strengthening and activity. If this is not successful, then an orthopedic consultation with shoulder surgeon, Dr. Crabtree, would be scheduled. Riley Luz M.D. ISABELLEF/pts Not Available [facility] 05/04/2013 04:34:50 05/01/2012 text/juan luis Lewis Dario 2 Mr. Dario Lewis, a [facility] employee who suffered a significant left shoulder strain that was unresolved when we saw him two weeks ago. Subsequently, he has seen physical therapy. He has improved, and it appears now that he would not need the shoulder surgery. He has gained a little amount of strength, but he still has some weakness on specially motions or lifting above the shoulder. Anything overhead of course will be a challenge. He has made arrangements with his workplace. He is going to be on a different procedure job so that he will not have to do one-arm lift. He is still going to be limited to about 15 motions per hour with the left arm and gaining until he gains strength as well as lifting and carrying restricted to 25-pound lifting and 25-pound carrying about 15 an hour as well as the repetitive use of the left arm limited to about 20. He is continuing with the physical therapy and has made an excellent improvement, not yet ready to return to full capacity. I expect that he will be over the next little while without surgery. Riley Luz M.D. JLF/pts Not Available [facility] 05/04/2013 04:34:54 05/29/2012 text/Rich Fournier 05/26/12 Mr. Lewis had an injury of the right shoulder, was treated aggressively with physical therapy and worked hard on his recovery. He is now 100% recovered with no pain, no limitation of motion, and ready to return to his full-time active job at [employer]. He is discharged this date and encouraged to follow the guidelines and follow the instructions of the therapist to maintain his strength and avoid further injury. Riley Luz M.D. ISABELLEF/pts Not Available [facility] 05/04/2013 04:35:07 03/30/2012 text/html ROS as noted in the HPI Not Available [facility] 04/03/2012 12:20:06 04/14/2012 text/html ROS as noted in the HPI Not Available [facility] 04/18/2012 11:25:33 04/28/2012 text/html ROS as noted in the HPI Not Available [facility] 05/01/2012 15:09:23 05/26/2012 text/html ROS as noted in the HPI [facility] 05/29/2012 07:59:31 07/11/2017 text/html Mr Lewis suffered a laceration on the left elbow this morning at work and presented in the clinic shortly thereafter. He does take plavix generic and aspirin. Daphney Muñoz MD [address] [facility], [address], [place], [address], [facility] 07/11/2017 22:03:43
--- OUTSIDE RECORDS SUMMARY | 2025-08-06 14:51 | XMS_ITS | Data Portability ---
Author Organization [facility] [place] [facility] Address [address] [place] [address] Care Team Providers Care Database Developer Name Role Phone GABINO SIERRA Primary Care Provider Assessment No assessment recorded. Plan of Treatment [...] By Organization Details Last Modified Time 06/07/2024 [id number] Wound care instructions were reviewed. Advised patient that may require several treatment for adequate resolution. [email or web address] Not available 06/07/2024 17:06:38 Reason for Referral None Reported. Procedures Surgical History Date Name Laterality Status Provider Name and Address Organization Details Recorded Time 06/07/20 24 Cryosurgery Warts/Skin Tags completed Sharon Tamayo MD [address] [facility], [place], [address], [facility] [place] 06/07/2024 17:05:24 10/10/19 22 Other completed Dolores David [facility] [place] 05/16/2024 14:48:39 10/10/18 98 ENT Surgery completed Dolores David [facility] [place] 05/16/2024 14:53:55 Imaging Results None recorded. Procedure [...] Address Organization Details Last Updated DateTime 05/16/2024 475089.01 g 43.6 kg/m2 172.72 cm 98.1 [degF] Dolores Smithence [facility] [place] 05/16/2024 14:50:32 Social History Question Answer Notes LastModified by [employer] Details LastModified Time Tobacco Smoking Status Never Smoker Dolores [facility] [place] 05/16/2024 14:48:34 Do You Have An Advance Directive? Yes Information not available 05/16/2024 Are You Blind Or Do You Have Difficulty Seeing? No Information not available 05/16/2024 What Was The Date Of Your Most Recent Tobacco Screening? 05/13/2024 Information not available 05/16/2024 Are You Passively Exposed To Smoke? No Information not available 05/16/2024 Sex: Unknown Functional Status Question Answer Note LastModified by [employer] Details LastModified Time Do you use any illicit or recreational drugs? No Information not available 05/16/2024 What is your level of alcohol consumption? Occasional Information not available 05/16/2024 What is your exercise level? None Information not available 05/16/2024 Mental Status Question Answer Note LastModified by Organization D etails LastModified Time Do you feel stressed (tense, restless, nervous, or anxious, or unable to sleep at night)? [id number] Information not available 05/16/2024 Family History Nothing Reported. Medical History Condition Response Diabetes Y Heart Problems Y Congestive Heart Failure (CHF) Y Hyperlipidemia Y Hypertension Y High Cholesterol Y Past Encounters Encounter ID Performer Location Encounter Start Date Encounter Closed Date Diagnosis/Indication Diagnosis SNOMED-CT Code Diagnosis ICD10 Code Diagnosis IMO Codes Diagnosis Note [id number] Sharon Tamayo MD [facility] [address] [facility], [facility] [place] [address] 05/16/2024 14:45:04 05/16/2024 15:36:05 Seborrheic keratosis 087021038 L82.1 Explained to the patient this growth [...] 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 [id number] Sharon Tamayo MD [facility] [address] [place] [address] 06/07/2024 16:03:01 06/07/2024 16:30:26 Actinic keratosis 444583364 L57.0 Pain in face 37093359 R5 1.9 Health Concerns Section Related Observation LastModified by Organization Detai ls LastModified Time None Recorded Concern Status LastModified by Organization Details LastModified Time None Recorded Advance Directives Directive Y: Payers Insurance Date Sequence Insurance Name Policy Number Policy Olivas Covered Member ID Olivas Member ID Guarantor Name 10/12/2023 1 [employer] Pablo Lewis [id number] Pablo Lewis 06/18/2024 1 [facility] (PPO) [id number] Pablo Lewis [id number] Pablo Lewis Notes Date Note Type Note Provider Name and Address Organization Details Recorded Time 05/16/2024 text/html 05/16/24- Patient is here for skin lesion on right hindu. Patient states he had surgery to remove the growth in the same location at [facility] with Dr Gifford 1996. States it was not a malignant lesion. It has grown back since. He states it is more raised up than it has been. He has no draining from it. Dr Sierra is the referring provider. Sharon Tamayo MD [address], [place], [address], [facility] [place] [facility] [place] 05/18/2024 16:28:47
[2025-08-06 16:10] LABS: Chloride 96 mmol/L (98-107)
[2025-08-06 16:11] LABS: Potassium 4.3 mmoL/L (3.5-5.1); Sodium 135 mmol/L (136-145)
[2025-08-06 16:13] LABS: Blood Urea Nitrogen 34 mg/dl (9-20)
[2025-08-06 16:14] LABS: Anion Gap 14.3 mEq/L (5-15); Calcium 9.0 mg/dl (8.4-10.2); Carbon Dioxide 29 mmol/L (22.0-30.0); Creatinine,Serum 1.50 mg/dl (0.66-1.25); Estimated Glomerular Filt Rate 47 ml/min (>60); GFR (African American) 57 ML/MIN (>60); Glucose 88 mg/dl (74-100)
== END 2025-08-06 23:59 | disposition home or self-care (01) ==
LOC: LAB 14:33
PROVIDERS: PCP Family Medicine; Visit Provider Internal Medicine
DX: I50.20 Unspecified systolic (congestive) heart failure (principal); E11.9 Type 2 diabetes mellitus without complications; R94.31 Abnormal electrocardiogram [ECG] [EKG]; Z79.899 Other long term (current) drug therapy
CPT/HCPCS: 36415; 80048

== ENCOUNTER 2025-08-29 07:19 | Day surgery (SDC) | payer BC, SELFPAY ==
[2025-08-29] VITALS (7 sets, daily range): BP systolic 109–127; BP diastolic 52–67; PULSE 61–72; RESP 16–20; TEMP 36.2; O2SAT 92–98; BMI 45.4
--- NOTE | 2025-08-29 07:01 | IR_ITS ---
APPROVED REPORT Patient Location: Outpatient PROCEDURES Right heart catheterization INDICATION Pulmonary hypertension, Congestive heart failure Informed consent was obtained prior to the procedure. COMPLICATIONS NONE Estimated Blood Loss: LESS THAN 10 ML TECHNIQUE One percent lidocaine was used to anesthetize the right anterior aspect of the neck. A oracle software engineer needle was used to identify the right internal jugular vein. Following this a larger cannulation needle was used to cannulate the right internal jugular vein and a wire was passed into the vein. Prior to the 7 Colombian sheath being inserted the wire was confirmed under fluoroscopic guidance to be in the inferior vena cava. A 7 Colombian sheath was introduced and a [place]-Devon catheter was floated using hemodynamic waveforms in the pulmonary artery, right ventricle , and right atrium. Saturations were obtained in the pulmonary artery and the right atrium. At the end of the procedure the patient was transferred to the postop holding area in stable condition for sheath removal. ANGIOGRAPHIC RESULTS Right atrial pressure 18 mmHg Pulmonary artery pressure 60/25 mmHg Pulmonary artery occlusion pressure 20 mmHg Right atrial saturation 78% Pulmonary artery saturation 75% Hemoglobin 13.8% Aortic saturation 93% Cardiac output 9.2 L/min IMPRESSION Moderate to severe pulmonary hypertension with elevated left-sided filling pressures PLAN 1. Increased diuresis 2. Based on complex heart failure and large doses of Bumex and metolazone patient should be considered for Cordella device to help manage complex heart failure Electronically signed by : Gurmeet Woodard MD 08/29/2025 13:03:06
[2025-08-29 07:44] LABS: Hematocrit 41.7 % (42.0-52.0); Hemoglobin 13.8 g/dL (14.1-18.0); Immature Granulocytes % 1.6 %; Mean Corpuscular HGB Conc 33.1 g/dL (31.8-35.4); Mean Corpuscular Hemoglobin 30.5 pg (27.0-31.2); Mean Corpuscular Volume 92.1 fl (80-94); Nucleated Red Blood Cells % 0 %; Platelet Count 246 K/mm3 (142-424); Red Blood Count 4.53 M/mm3 (4.60-6.20); Red Cell Distribution Width-SD 51.7 fL; White Blood Count 10.7 K/mm3 (4.8-10.8)
[2025-08-29 07:48] LABS: Chloride 99 mmol/L (98-107); Potassium 4.5 mmoL/L (3.5-5.1); Sodium 139 mmol/L (136-145)
[2025-08-29 07:51] LABS: Anion Gap 18.5 mEq/L (5-15); Blood Urea Nitrogen 28 mg/dl (9-20); Calcium 9.0 mg/dl (8.4-10.2); Carbon Dioxide 26 mmol/L (22.0-30.0); Creatinine Clearance Estimated 52 mL/min (50-200); Creatinine,Serum 1.40 mg/dl (0.66-1.25); Estimated Glomerular Filt Rate 51 ml/min (>60); GFR (African American) 62 ML/MIN (>60); Glucose 127 mg/dl (74-100)
[2025-08-29] MEDS: HEPARIN 1,000 UNITS/500ML NS (CATH LAB) 3000 UNIT IV (08:16)
[2025-08-29] MEDS: 0.9 % SODIUM CHLORIDE 500 ML 25 ML IV (08:18)
[2025-08-29] MEDS: LIDOCAINE 1% 10ML MDV 10 ML IJ (08:18)
[2025-08-29] MEDS: FENTANYL 100MCG/2ML VIAL 50 MCG IV (08:32)
[2025-08-29] MEDS: MIDAZOLAM HCL 1MG/ML 5ML VIAL 1 MG IV (08:32)
[2025-08-29 14:22] LABS: CATHL Arterial O2 SAT 75.5 % (90-100); CATHL Venous O2 SAT 78.1 % (75-80)
== END 2025-08-29 09:51 | disposition home or self-care (01) ==
PROVIDERS: PCP Family Medicine; Visit Provider Internal Medicine
PROC: 4A023N6 Measurement of Cardiac Sampling and Pressure, Right Heart, Percutaneous Approach (ICD-10-PCS; CPT 93451; principal; 2025-08-29 11:30)
DX: I27.20 Pulmonary hypertension, unspecified (principal); I50.33 Acute on chronic diastolic (congestive) heart failure; I50.20 Unspecified systolic (congestive) heart failure; R94.31 Abnormal electrocardiogram [ECG] [EKG]; E11.9 Type 2 diabetes mellitus without complications; K21.9 Gastro-esophageal reflux disease without esophagitis; Z79.84 Long term (current) use of oral hypoglycemic drugs; Z79.82 Long term (current) use of aspirin; Z79.899 Other long term (current) drug therapy
CPT/HCPCS: 80048; 82810; 85025; 93451; 99152; C1894; J1200; J1644; J2003; J3010; J7040

== ENCOUNTER 2025-09-03 14:35 | Outpatient (CLI) | payer BC, SELFPAY ==
--- OUTSIDE RECORDS SUMMARY | 2025-09-03 14:42 | XMS_ITS | Clinical Summary ---
Author Organization [facility] Address [address] [place] [address] Care Team Providers Care Imcu Nurse Name Role Phone Chente Sierra MD Primary Care Provider [phone] Allergies No known active allergies Medications simvastatin (ZOCOR) 20 MG tablet Take 1 tablet by mouth Daily. 3 Active sacubitril-valsa rtan (Entresto) 24-26 MG tabletIndication s:Chronic combined systolic and diastolic congestive heart failure Take 1 tablet by mouth 2 (Two) Times a Day. 60 tablet 11 3 Active metoprolol succinate XL (TOPROL-XL) 25 MG 24 hr tabletIndication s:Chronic combined systolic and diastolic congestive heart failure Take 1 tablet by mouth Daily. 30 tablet 3 Active aspirin 81 MG EC tablet Take 1 tablet by mouth Daily. Active bumetanide (BUMEX) 2 MG tabletIndication s:Acute on chronic combined systolic and diastolic congestive heart failure Take 1 tablet by mouth 3 (Three) Times a Day. Take one pill in the morning and two pills in the afternoon 60 tablet 11 4 Active potassium chloride (K-DUR,KLOR-CON) 20 MEQ CR tabletIndication s:Acute on chronic combined systolic and diastolic congestive heart failure Take 1 tablet by mouth 2 (Two) Times a Day. 30 tablet 11 4 Active cephalexin (Keflex) 500 MG capsuleIndicatio ns:Acute on chronic combined systolic and diastolic congestive heart failure,Cellulit is of left lower extremity Take 1 capsule by mouth 2 (Two) Times a Day. 14 capsule 4 Active doxycycline (VIBRAMYCIN) 100 MG capsuleIndicatio ns:Cellulitis of right lower extremity Take 1 capsule by mouth 2 (Two) Times a Day. 20 capsule 4 Active empagliflozin (JARDIANCE) 10 MG tablet tabletIndication s:Chronic combined systolic and diastolic congestive heart failure,Bilatera l leg edema,Type 2 diabetes mellitus with other circulatory complication, without long-term current use of insulin Take 1 tablet by mouth Daily. 14 tablet 4 Active spironolactone (ALDACTONE) 25 MG tabletIndication s:Acute on chronic combined systolic and diastolic congestive heart failure TAKE 2 TABLETS BY MOUTH DAILY 30 tablet 11 4 Active Active Problems Problem Noted Date Diagnosed Date Cellulitis of right lower extremity 01/04/2024 Assessment & Plan (01/04/2024 3:09 PM EDT): Patient reports worsening right lower extremity swelling and redness. He also has ulcerations with yellow drainage. He recently completed Keflex 3 weeks ago. He initially noticed improvement in symptoms but have worsened in the last week. - Trial of doxycycline 100 mg twice daily x 10 days. Keep follow-up visit in 1 month ARLETTE (obstructive sleep apnea) 01/04/2024 Assessment & Plan (01/04/2024 2:45 PM EDT): Patient recently completed a PSG that showed severe sleep apnea with an AHI of 42. PAP therapy was initiated. He received his machine yesterday and used it last night for the first time. - He has an appointment in 1 month for an ARLETTE compliance visit. Cellulitis of left lower extremity 12/14/2023 Assessment & Plan (12/15/2023 9:08 AM EST): Left lower extremity with areas of redness, worsening edema, appearance of early blistering with fluid leak. We will treat him for cellulitis. Collaborated with Dr. Palm and she has ordered antibiotics. Pre-operative cardiovascular examination 024 Assessment & Plan (12/15/2023 9:10 AM EST): He is here today requesting cardiac clearance for a carpal tunnel release per Dr. Jose Alejandro Palm. We discussed at this time hold on surgery. At best he appears to be an intermediate risk for any surgical procedures. We will recheck his echocardiogram. If his EF is low then there is consideration that he will be needing a defibrillator. Chronic combined systolic an d diastolic congestive heart failure 04/18/2023 Overview (04/18/2023): Added automatically from request for surgery [id number] Assessment & Plan (12/19/2023 11:42 AM EDT): Heart failure is stable. Continue current treatment regimen. Dietary sodium restriction. Encouraged daily monitoring of the patient's weight. Medication changes per orders. Heart failure will be reassessed in 2 weeks. Bradycardia, drug induced 04/07/2023 Assessment & Plan (04/07/2023 6:28 PM EDT): He had heart monitor from 03/09 to 03/23/2023, 14-day monitor shows sinus rhythm heart rate average 62 with multiple pauses and bradycardia burden. EKG today shows sinus bradycardia with a first-degree AV block heart rate 58. He denies any weakness dizziness or syncope. He does have shortness of breath and significant bilateral lower extremity edema. He is currently on atenolol 100 mg daily. Reports he has been on this medication for years. This medication will be stopped. Plan 14-day live monitor to be placed after the atenolol has been stopped for further evaluation of bradycardia. Long discussion today of possible need for pacemaker placement. We will discontinue the beta-esdras and reevaluate with a 14-day live heart monitor to be placed on the patient in 1 week. Acute on chronic combined sy stolic and diastolic congestive heart failure 04/07/2023 Assessment & Plan (12/15/2023 9:12 AM EST): Noted increased weight gain 5 pounds. Increase shortness of air. Increased edema bilateral lower extremities worse on the left with redness and appearances of early blistering. He has not been taking metolazone 5 mg daily and he has only been taking his spironolactone 25 mg once a day. He is seen in right-sided heart failure and worsening. On last echo his EF was 39% and diastolic dysfunction. Plan: -Recheck echo he has a scheduled appointment on 12/19/2023 -Medication educated on meds dose and contacted pharmacy to assure that he has correct medication. He is instructed to be taking: #1 Bumex 2 mg 3 times a day #2 metolazone 5 mg daily #3 spironolactone 25 mg 2 tablets daily -Collaborated with Dr. Palm who is arranging outpatient IV medication Lasix -Collaborated with Dr. Palm on echo follow-up. As she reports that plan is if EF is low then he will be considered for defibrillator placement. -Short follow-up in 1 week to assess labs BMP and BNP lab orders given, assess lower extremity edema and follow-up echo. Assessment & Plan (04/07/2023 6:06 PM EDT): He reports that his edema and shortness of breath started in August 2022 and has been progressively getting worse. Now he reports that he has fluid leaking from his legs. He had been on Bumex 1 mg and at his last visit here approximately 1 month ago this was increased to Bumex 2 mg. He reports that he is tolerating this medication and that he is having very good urinary output. Echocardiogram completed today shows EF 41 to 45% and a grade 1 diastolic dysfunction. Heart monitor results reviewed today also showed a sinus bradycardia and pauses, suspect rate control medication beta-esdras may be contributing to heart failure. He continues to need further evaluation with stress testing as he has risk factors for CAD and heart failure may be due to ischemic disease. Consideration that he have may be multifocal contributing factors including CAD, hypertension, obesity, and bradycardia induced by atenolol. Plan: Continue Bumex 2 mg a day, check labs BMP and BNP, change stress testing to nuclear stress testing next week. Shortness of breath 04/07/2023 Assessment & Plan (04/07/2023 6:12 PM EDT): His shortness of breath had onset in August 2022 and has been increasing. He reports that it is some better on the new dose of Bumex 2 mg. He reports certainly not any worse. He has multiple risk factors for CAD and his shortness of air may be an anginal equivalent. He is asked to hold his as needed Viagra dosing until after further cardiac testing. He lysed understanding. We discussed today treadmill stress and he reports he is unable to ambulate a treadmill due to shortness of air and bilateral lower extremity edema. He is willing to have a nuclear stress test and this is scheduled for 1 week. Secondary pulmonary arterial hypertension 2022 Assessment & Plan (04/07/2023 6:17 PM EDT): Noted right ventricular systolic pressure from tricuspid regurgitation is moderately elevated at 45 to 55 mmHg. Suspect this is multi factorial as well. Suspect heart failure, obesity, tobacco use and he may have an underlying sleep apnea. He has further testing considering home sleep test. Abnormal EKG 03/09/2023 Bilateral leg edema 03/09/2023 Assessment & Plan (01/04/2024 3:00 PM EDT): Currently stable. He is unable to wear compression stockings due to size of legs. Metolazone was stopped at last visit due to elevation in creatinine. BMP from 01/01/2024 reviewed. Creatinine is back to normal, 1.3, GFR 59. - Continue Bumex, potassium and spironolactone at current doses - Elevate legs is much as possible Assessment & Plan (12/19/2023 11:44 AM EDT): He has lost 2 pounds since last week. He received outpatient IV Lasix dose and feels like his lower extremity edema is currently stable. He is unable to wear compression stockings due to size of legs. He has no open blisters at this time. BMP completed yesterday shows an elevation in creatinine at 1.5 and GFR has decreased to 50. - Stop metolazone today - Follow-up in 2 weeks, BMP prior to visit - Continue all other medications as prescribed Assessment & Plan (12/15/2023 9:07 AM EST): Weight is up 5 pounds Bilateral lower extremity edema is worsening. Worse on the left lower extremity. See plan for heart failure. Hyperlipidemia Essential hypertension Assessment & Plan (08/04/2023 10:28 AM EDT): Hypertension is improving with treatment. Continue current treatment regimen. Dietary sodium restriction. Blood pressure will be reassessed at the next regular appointment. Assessment & Plan (04/07/2023 6:14 PM EDT): . Blood pressure today 132/74. His blood pressure does appear to be well controlled on atenolol 100 mg daily. Due to his bradycardia we plan to stop atenolol. I have sent in lisinopril 20 mg daily for blood pressure control. This may need to be increased to 40 mg. I have asked him to check his blood pressure daily and I have advised him of a normal blood pressure reading would be 110/60 to 140/88. He is to call and report any systolic blood pressures greater than 150. If he is having systolic blood pressures greater than 150 then we will plan to double lisinopril to 40 mg. Hypersomnia Assessment & Plan (12/19/2023 11:44 AM EDT): A PSG was ordered at last visit but has not been scheduled yet. Assessment & Plan (12/15/2023 9:09 AM EST): He reports he is not able to sleep at night. He reports he is waking up every 2 hours. He feels like he is gasping for air. Sleep interruption at night causing daytime sleepiness. Plan an in lab sleep study PSG He is not a candidate for a home sleep study as he has congestive heart failure. Follow-up after study Family history of early CAD Morbid obesity with BMI of 40.0-44.9, adult Former tobacco use Hyperglycemia Family History Medical History Relation Name Comments Heart disease Brother 61 Heart attack Father Heart disease Mother 84 Relation Name Status Comments Brother 61 Alive Father Mother 84 Alive Social History Tobacco Use Types Packs/Day Years Used Date Smoking Tobacco: Never Passive Smoke Exposure: Never Smokeless Tobacco: Former Chew Quit: 2007 Tobacco Cessation:Counseling Given: Not Answered Alcohol Use Standard Drinks/Week Comments Not Currently 0 (1 standard drink = 0.6 oz pur e alcohol) AUDIT-C Answer Date Recorded Q1: How often do you have a drink containing alcohol? Never 04/21/2023 Q2: How many drinks containi ng alcohol do you have on a typical day when you are drinking? Patient does not drink Q3: How often do you have si x or more drinks on one occasion? Never 04/21/2023 Abuse Screen Answer Date Recorded Unsafe at Home or Work/School Not on file Feels Threatened by Someone? Not on file Does Anyone Keep You from Co ntacting Others or Doint Things Outside the Home? Not on file 04/22/2024 Physical Sign of Abuse Present Not on file 0 04/22/2024 Housing Stability Answer Date Recorded Current Living Arrangements Not on file 04/09 Potentially Unsafe Housing Conditions Not on kp e 04/22/2024 Family and Community Support Answer Madan e Recorded Help with Day-to-Day Activities Not on file 07/20/2023 Lonely or Isolated Not on file 07/20/2023 Employment Answer Date Recorded Do you want help finding or keeping work or a nikolai b? Not on file 07/20/2023 Disabilities Answer Date Recorded Concentrating, Remembering, or Making Decisions Difficulty Not on file 04/22/2024 Doing Errands Independently Difficulty Not on fi le 04/22/2024 Education Answer Date Recorded Help with school or training? Not on file Preferred Language Not on file 07/20/2023 Sex and Gender Information Value Date Recorded Sex Assigned at Male 02/28/2023 7:21 PM EDT Legal Sex Male 9:55 AM EDT Gender Identity Male 02/28/2023 7:21 PM EDT Sexual Orientation Straight 02/28/2023 7: 21 PM EDT Last Filed Vital Signs Vital Sign Reading Time Taken Comments Blood Pressure 108/60 01/04/2024 12:56 PM EDT Pulse 75 01/04/2024 12:56 PM EDT Temperature 36.1 C (97 F) 04/21/2023 10:14 AM EDT Respiratory Rate 16 04/21/2023 11:53 AM EDT Oxygen Saturation 94% 01/04/2024 12:56 PM EDT Inhaled Oxygen Concentration - - Weight 138 kg (305 lb 1.6 oz) 01/04/2024 12:56 P M EDT Height 172.7 cm (5' 8 ) 01/04/2024 12:56 PM EDT Body Mass Index 46.39 01/04/2024 12:56 PM EDT Plan of Treatment Health Maintenance Due Date Last Done Comments Pneumococcal Vaccine 50+ (1 of 2 - PCV) 1980 TDAP/TD VACCINES (1 - Tdap) 1980 COLOGUARD 2006 COLON CANCER SCREENING 5 YEA R SIGMOIDOSCOPY 2006 COLONOSCOPY [address] CANCER SCREENING [address] COLONOGRAPHY 2006 FECAL OCCULT BLOOD TEST 2006 FIT Testing (1 year) 2006 ZOSTER VACCINE (1 of 2) 2011 ANNUAL PHYSICAL 03/09/2023 HEPATITIS C SCREENING 03/09/2023 LIPID PANEL 04/21/2024 04/21/2023 INFLUENZA VACCINE 05/10/2025 07/30/2022, , 08/06/2017 HEMOGLOBIN A1C Discontinued 04/21/2023 Procedures Procedure Name Priority Date/Time Associated Diagnosis Comments HEMOGLOBIN A1C STAT 04/21/2023 10:18 AM EDT LIPID PANEL STAT 04/21/2023 10:18 AM EDT from Last 3 Months or Most Recently Relevant to Health Maintenance Results * (ABNORMAL) Hemoglobin A1c (04/21/2023 10:18 AM EDT) Hemoglobin A1C 6.00(H) 4.80 - 5.60 % 04/21/2023 12:17 PM EDT [facility] Blood Line / Unknown 04/21/2023 10 :18 AM EDT 04/21/2023 10:34 AM EDT Narrative [facility] - 04/21/2023 12:17 PM EDT Hemoglobin A1C Ranges: Increased Risk for Diabetes 5.7% to 6.4% Diabetes >= 6.5% Diabetic Goal < 7.0% us Corrie Orta APRN LAB BLOOD ORDERABLES Final R esult [facility]
[address] [place] [address], * (ABNORMAL) Lipid Panel (04/21/2023 10:18 AM EDT) Total Cholesterol 123 0 - 200 mg/dL 04/21/2023 11:13 AM EDT [facility] Triglycerides 118 0 - 150 mg/dL 04/21/2023 11:13 AM EDT [facility] HDL Cholesterol 35(L) 40 - 60 mg/dL 04/21/2023 11:13 AM EDT [facility] LDL Cholesterol 66 0 - 100 mg/dL 04/21/2023 11:13 AM EDT [facility] VLDL Cholesterol 22 5 - 40 mg/dL 04/21/2023 11:13 AM T [facility] LDL/HDL Ratio 1.84 04/21/2023 11:13 AM T [facility] Blood Line / Unknown 04/21/2023 10 :18 AM EDT 04/21/2023 10:34 AM EDT Narrative [facility] - 04/21/2023 11:13 AM EDT Cholesterol Reference Ranges (U.S. Department of Health and Human Services ATP III Classifications) Desirable <200 mg/dL Borderline High 200-239 mg/dL High Risk >240 mg/dL Triglyceride Reference Ranges (U.S. Department of Health and Human Services ATP III Classifications) Normal <150 mg/dL Borderline High 150-199 mg/dL High 200-499 mg/dL Very High >500 mg/dL HDL Reference Ranges (U.S. Department of Health and Human Services ATP III Classifications) Low <40 mg/dl (major risk factor for CHD) High >60 mg/dl ('negative' risk factor for CHD) LDL Reference Ranges (U.S. Department of Health and Human Services ATP III Classifications) Optimal <100 mg/dL Near Optimal 100-129 mg/dL Borderline High 130-159 mg/dL High 160-189 mg/dL Very High >189 mg/dL Corrie Orta APRN LAB BLOOD ORDERABLES Final R esult [facility]
[address] [place] [address], from Last 3 Months or Most Recently Relevant to Health Maintenance Insurance [facility] P[employer] on file Care Teams Imcu Nurse Relationship Specialty Start Date End Date Chente Sierra MD [address] [place] [address] [place] [id number] PCP - General Family Medicine 03/09/23
--- OUTSIDE RECORDS SUMMARY | 2025-09-03 14:42 | XMS_ITS | Encounter Summary ---
Author Organization [facility] Address [address] [place] [id number] Care Team Providers Care Corrosion Control Fitter Name Role Phone Chente Sierra MD Primary Care Provider [phone] Reason for Visit * Reason Comments Med Refill Encounter Details Date Type Department Care Team (Late st Contact Info) Description 04/07/2023 Refill [facility] [address] [place] [phone] Marychuy Nava APRN Med Refill Social History Tobacco Use Types Packs/Day Years Used Date Smoking Tobacco: Never Passive Smoke Exposure: Never Smokeless Tobacco: Former Chew Quit: 2007 Alcohol Use Standard Drinks/Week Comments Not Currently 0 (1 standard drink = 0.6 oz pur e alcohol) Sex and Gender Information Value Date Recorded Sex Assigned at Male 02/28/2023 7:21 PM EDT Legal Sex Male 9:55 AM EDT Gender Identity Male 02/28/2023 7:21 PM EDT Sexual Orientation Straight 02/28/2023 7: 21 PM EDT documented as of this encounter Plan of Treatment Not on file documented as of this encounter Visit Diagnoses Diagnosis Essential hypertension Unspecified essential hypertension documented in this encounter Care Teams Corrosion Control Fitter Relationship Specialty Start Date End Date Chente Sierra MD [address] [place] [address] PCP - General Family Medicine 03/09/23 documented as of this encounter
[2025-09-03 16:14] LABS: Chloride 91 mmol/L (98-107)
[2025-09-03 16:15] LABS: Potassium 4.3 mmoL/L (3.5-5.1); Sodium 131 mmol/L (136-145)
[2025-09-03 16:18] LABS: Anion Gap 18.3 mEq/L (5-15); Blood Urea Nitrogen 60 mg/dl (9-20); Calcium 9.9 mg/dl (8.4-10.2); Carbon Dioxide 26 mmol/L (22.0-30.0); Creatinine,Serum 1.80 mg/dl (0.66-1.25); Estimated Glomerular Filt Rate 38 ml/min (>60); GFR (African American) 46 ML/MIN (>60); Glucose 146 mg/dl (74-100)
== END 2025-09-03 23:59 | disposition home or self-care (01) ==
LOC: LAB 14:35
PROVIDERS: PCP Family Medicine; Visit Provider Internal Medicine
DX: I27.20 Pulmonary hypertension, unspecified (principal); R05.8 Other specified cough; K21.9 Gastro-esophageal reflux disease without esophagitis; Z79.899 Other long term (current) drug therapy; E11.9 Type 2 diabetes mellitus without complications; I50.43 Acute on chronic combined systolic (congestive) and diastolic (congestive) heart failure; R94.31 Abnormal electrocardiogram [ECG] [EKG]
CPT/HCPCS: 36415; 80048

== ENCOUNTER 2025-09-23 15:33 | Outpatient (CLI) | payer BC, SELFPAY ==
[2025-09-23 16:01] LABS: Hematocrit 40.3 % (42.0-52.0); Hemoglobin 13.4 g/dL (14.1-18.0); Immature Granulocytes % 0.6 %; Mean Corpuscular HGB Conc 33.3 g/dL (31.8-35.4); Mean Corpuscular Hemoglobin 30.4 pg (27.0-31.2); Mean Corpuscular Volume 91.4 fl (80-94); Nucleated Red Blood Cells % 0 %; Platelet Count 267 K/mm3 (142-424); Red Blood Count 4.41 M/mm3 (4.60-6.20); Red Cell Distribution Width-SD 50.2 fL; White Blood Count 11.7 K/mm3 (4.8-10.8)
[2025-09-23 17:02] LABS: Free T4 (Free Thyroxine) 1.18 ng/dl (0.78-2.19)
[2025-09-23 17:28] LABS: Albumin Level 4.9 g/dl (3.5-5.0); Chloride 95 mmol/L (98-107); Potassium 4.3 mmoL/L (3.5-5.1); Sodium 132 mmol/L (136-145)
[2025-09-23 17:31] LABS: Alanine Aminotransferase 46 U/L (12-78); Alkaline Phosphatase 63 U/L (38-126); Anion Gap 17.3 mEq/L (5-15); Aspartate Amino Transferase 49 U/L (17-59); Bilirubin,Direct 0.1 mg/dl (0.0-0.4); Bilirubin,Indirect 0.5 mg/dL (0.0-0.9); Bilirubin,Total 0.6 mg/dl (0.2-1.3); Bilirubin,Unconjugated 0.5 mg/dL (0.0-1.1); Calcium 9.9 mg/dl (8.4-10.2); Carbon Dioxide 24 mmol/L (22.0-30.0); Cholesterol 110 mg/dl (140-200); Creatinine,Serum 2.40 mg/dl (0.66-1.25); Estimated Glomerular Filt Rate 27 ml/min (>60); GFR (African American) 33 ML/MIN (>60); Glucose 106 mg/dl (74-100); Total Protein,Serum 8.1 g/dl (6.3-8.2); Triglycerides 222 mg/dl (30-150)
[2025-09-23 17:32] LABS: HDL Cholesterol 32 mg/dl (40-60); Magnesium 2.1 mg/dl (1.6-2.3)
[2025-09-23 17:51] LABS: Triiodothryronine (T3) Uptake 37 % (23.5-40.5)
[2025-09-23 18:57] LABS: Blood Urea Nitrogen 82 mg/dl (9-20)
[2025-09-23 19:30] LABS: Free Thyroxine Index 3.2 ug/dL (5.93-13.13); T4 (Thyroxine) 8.6 ug/dl (5.53-11.0)
[2025-09-23 19:44] LABS: Thyroid Stimulating Hormone 2.51 uIU/mL (0.465-4.68)
[2025-09-24 00:43] LABS: Thyroid Stimulating Hormone 2.60 uIU/mL (0.465-4.68)
[2025-09-24 10:12] LABS: Testosterone,Total 301 ng/dL (264-916)
[2025-09-25 17:46] LABS: Testosterone,Free 12.3 pg/mL (6.6-18.1)
== END 2025-09-23 23:59 | disposition home or self-care (01) ==
LOC: LAB 15:33
PROVIDERS: PCP Family Medicine; Visit Provider Internal Medicine
DX: I27.20 Pulmonary hypertension, unspecified (principal); I50.43 Acute on chronic combined systolic (congestive) and diastolic (congestive) heart failure; E11.9 Type 2 diabetes mellitus without complications
CPT/HCPCS: 36415; 80048; 80061; 80076; 83735; 84402; 84403; 84436; 84439; 84443; 84479; 85025

== ENCOUNTER 2025-10-01 11:41 | Outpatient (CLI) | payer BC, SELFPAY ==
--- OUTSIDE RECORDS SUMMARY | 2025-10-01 11:47 | XMS_ITS | Encounter Summary ---
Author Organization [facility] Address [address] [place] [id number] Care Team Providers Care Forcer Maker Name Role Phone Chente Sierra MD Primary Care Provider [phone] Reason for Visit * Reason Comments Med Refill Encounter Details Date Type Department Care Team (Late st Contact Info) Description 04/07/2023 Refill [facility] [address] [place] [phone] Marychuy Nava APRN Med Refill Social History [...] hypertension documented in this encounter Care Teams Forcer Maker Relationship Specialty Start Date End Date Chente Sierra MD [address] [place] [address] PCP - General Family Medicine 03/09/23 documented as of this encounter
--- OUTSIDE RECORDS SUMMARY | 2025-10-01 11:47 | XMS_ITS | Clinical Summary ---
Author Organization [facility] Address [address] [place] [address] Care Team Providers Care Clinical Educator Name Role Phone Chente Sierra MD Primary Care Provider [phone] Allergies No known active allergies Medications simvastatin [...] (04/18/2023): Added automatically from request for surgery [id number] Assessment & Plan (12/19/2023 11:42 AM EDT): [...] - 5.60 % 04/21/2023 12:17 PM EDT [facility] Blood Line / Unknown 04/21/2023 10 :18 AM EDT 04/21/2023 10:34 AM EDT Narrative [facility] - 04/21/2023 12:17 PM EDT Hemoglobin A1C Ranges: Increased Risk for Diabetes 5.7% to 6.4% Diabetes >= 6.5% Diabetic Goal < 7.0% us Corrie Orta APRN LAB BLOOD ORDERABLES Final R esult [facility]
[address] [place] [address], * (ABNORMAL) Lipid Panel (04/21/2023 10:18 AM EDT) Total Cholesterol 123 0 - 200 mg/dL 04/21/2023 11:13 AM EDT [facility] Triglycerides 118 0 - 150 mg/dL 04/21/2023 11:13 AM EDT [facility] HDL Cholesterol 35(L) 40 - 60 mg/dL 04/21/2023 11:13 AM EDT [facility] LDL Cholesterol 66 0 - 100 mg/dL 04/21/2023 11:13 AM EDT [facility] VLDL Cholesterol 22 5 - 40 mg/dL 04/21/2023 11:13 AM T [facility] LDL/HDL Ratio 1.84 04/21/2023 11:13 AM T [facility] Blood Line / Unknown 04/21/2023 10 :18 AM EDT 04/21/2023 10:34 AM EDT Narrative [facility] - 04/21/2023 11:13 AM EDT Cholesterol [...] APRN LAB BLOOD ORDERABLES Final R esult [facility]
[address] [place] [address], from Last 3 Months or Most Recently Relevant to Health Maintenance Insurance [facility] PPO [employer] on file Care Teams Clinical Educator Relationship Specialty Start Date End Date Chente Sierra MD [address] [place] [address] [place] [address] PCP - General Family Medicine 03/09/23
[2025-10-01 12:55] LABS: Anion Gap 13.1 mEq/L (5-15); Blood Urea Nitrogen 60 mg/dl (9-20); Calcium 9.6 mg/dl (8.4-10.2); Carbon Dioxide 30 mmol/L (22.0-30.0); Chloride 96 mmol/L (98-107); Creatinine,Serum 1.90 mg/dl (0.66-1.25); Estimated Glomerular Filt Rate 36 ml/min (>60); GFR (African American) 44 ML/MIN (>60); Glucose 129 mg/dl (74-100); Potassium 4.1 mmoL/L (3.5-5.1); Sodium 135 mmol/L (136-145)
== END 2025-10-01 23:59 | disposition home or self-care (01) ==
LOC: LAB 11:42
PROVIDERS: PCP Family Medicine; Visit Provider Internal Medicine
DX: I50.33 Acute on chronic diastolic (congestive) heart failure (principal)
CPT/HCPCS: 36415; 80048